=== PATIENT | female | born 1965 | race Caucasian/White ===

== ENCOUNTER 2018-08-16 21:04 | Outpatient (REF) | payer OTHER, SELFPAY ==
[2018-08-16 21:31] LABS: Anion Gap 8.1 mmol/L (3-11); BUN 11 mg/dL (7-18); CO2 26.9 mmol/L (21.0-32.0); CREATININE 0.88 mg/dL (0.55-1.02); Calcium 8.4 mg/dL (8.5-10.1); Chloride 104 mmol/L (98-107); Glucose 104 mg/dL (70-100); Potassium 4.1 mmol/L (3.5-5.1); Sodium 139 mmol/L (136-145)
== END 2018-08-16 21:24 ==
LOC: NCHCN 21:04
PROVIDERS: PCP Nurse Practitioner Family; Visit Provider Nurse Practitioner Family
DX: N28.9 Disorder of kidney and ureter, unspecified (principal); R00.2 Palpitations; R53.83 Other fatigue; R20.2 Paresthesia of skin; K21.9 Gastro-esophageal reflux disease without esophagitis; J45.20 Mild intermittent asthma, uncomplicated; M25.50 Pain in unspecified joint
CPT/HCPCS: 80048

== ENCOUNTER 2018-09-24 09:51 | Day surgery (SDC) | payer OTHER, SELFPAY ==
[2018-09-24 10:07] VITALS: BP 139/85; PULSE 74; RESP 16; TEMP 37.2; O2SAT 98
[2018-09-24] MEDS: Lactated Ringers 1,000 ML 30 ML IV (10:37)
--- NOTE | 2018-09-24 11:52 | STOM_PTH ---
PATIENT: REGINALDO CELESTIN LOC: [facility] U#:[id number] AGE/SX: 52/F ROOM: RE09/24/[address]: Javy Mares DO : 1965 BED: DIS: 09/24/2018 SPEC #: [id number] RECD: 09/24/18 12:59 STATUS: ROSALBA REQ #: [id number] CITLALLI: 09/24/18 11:[address]: Javy Mares DEPT: Surgical Specimen RECD BY: Reginaldo Lee ENTERED: 09/24/18 13:00 SP TYPE: STOMACH OTHR DR: Claribel Jc Tissues: 1 - STOMACH BIOPSY Procedures: GROSS AND MICRO LEVEL 4 IMMUNOPEROXIDASE STAIN Comments: [id number]
[2018-09-24 12:27] VITALS: BP 117/80; PULSE 76; RESP 16; TEMP 37.3; O2SAT 99
--- NOTE | 2018-09-24 13:01 | W.PM.ENDDOP ---
Date of service: 09/24/18 Time of Service: 11:35 Endoscopy Report DATE OF PROCEDURE: 09/24/18 PRE-OP DIAGNOSIS: Gastroesophageal reflux disease POST-OP DIAGNOSIS: same PROCEDURE: Esophagogastroduodenoscopy with biopsy SURGEON: Javy Mares ANESTHESIA: MAC (Zaki Rizo CRNA; ASA 2 Mallampati class II) ESTIMATED BLOOD LOSS: 1 PATHOLOGY: other (Gastric antral biopsy) COMPLICATIONS: None DISPOSITION: same day INDICATIONS: Pleasant 52 y/o female presents with complaints of long standing GERD that has been poorly controlled with the use of Prevacid daily. 3 weeks ago (beginning of ) she started taking Pepcid QHS with no change in her symptoms. She reports that in the Summer 2016 she noted abdominal pain and tenderness to palpation in the LUQ that radiated into her lower abdominal/LLQ. She states this resolved however 2-3 months ago similar symptoms restarted. She noted break through reflux and point tenderness in the LUQ that is intermittent. But since that time she has had constant, low level burning that feels like indigestion. She has also noted that strong smells such as cutting onions or the smell of a skunk will make me have indigestion. She denies having made any changes to her diet and states that she enjoys flavor foods, that have lots of seasonings. FINDINGS: Examining the upper gastrointestinal tract from the oropharynx to the third portion of the duodenum no gross abnormalities were noted. Biopsies were taken for the gastric antrum for microscopic analysis. PROCEDURE DESCRIPTION: The patient was brought to the procedure room. Monitoring for telemetry, end-tidal CO2, O2 saturation, blood pressure were applied. An appropriate timeout was taken reviewing the patient's identification, allergies, medications,and procedure. A bite was placed, and sedation was titrated for effect by the GLUE MOUNTER OPERATOR. An Olympus variable stiffness endoscope was advanced from the oropharynx to the third portion of the duodenum without difficulty. The scope was then withdrawn in circumferential manner from the duodenum back to the oropharynx. In performing withdrawal of the scope, the duodenum appeared grossly normal. The scope was withdrawn into the gastric antrum and retroflexed to examine the entire stomach, and no abnormalities of the gastric antrum, anterior, posterior surfaces of the stomach, lesser curvature, greater curvature, and fundus were noted. I did take biopsies from the gastric antrum which were submitted to pathology for microscopic review the scope was then withdrawn to the GE junction which I measured at 34 cm The Z line was at 34 cm and appeared regular. I withdrew the scope through the remainder of the esophagus all which appear grossly normal. Scope was then withdrawn terminating the upper endoscopy.
--- NOTE | 2018-09-24 13:10 | PDOC.DSDIS_ITS ---
Discharge Plan Disposition Patient Disposition: HOME Condition: Good Discharge Details Reason For Visit: GERD Attending Provider: Javy Mares Primary Care Provider: Claribel Jc Home Meds and New Rx's Prescriptions: Continue famotidine [Pepcid] 20 mg tablet 20 mg PO HS RF: 0 cetirizine [Zyrtec] 10 MG tablet 10 mg PO BID RF: 0 calcium carbonate [Calcium 500] 500 MG tablet 500 mg PO HS RF: 0 ferrous sulfate [Feosol] 325 MG tablet 325 mg PO BID RF: 0 levothyroxine 150 MCG tablet 150 mcg PO DAILY RF: 0 fluticasone [Flovent HFA] 10.6 GM HFA aerosol inhaler 2 puff Inhalation BID PRNQty: 1 RF: 3 albuterol sulfate [ProAir HFA] 8.5 GM HFA aerosol inhaler 2 puff Inhalation PRN RF: 0 drospirenone-ethinyl estradiol [ASHLEY (28)] 1 EACH tablet 1 tab-cap PO DAILY RF: 0 lactobacillus combination no.4 [Probiotic] 1 EACH capsule 1 ea PO DAILY RF: 0 lansoprazole [Prevacid SoluTab] 30 MG tablet,disintegrat, delay rel 30 mg PO DAILY RF: 0 mometasone [Nasonex] 17 GM spray,non-aerosol 2 spray NS HS RF: 0 olopatadine [Pazeo] 2.5 ML drops 2.5 ml Ophthalmic HS RF: 0 Discharge Instructions Instructions: Upper Endoscopy (DC) Stand Alone Forms: DSU Post EGD Instructions, Darius Bradshaw (DSU) Activity:: Activity as Tolerated Diet:: As Tolerated Discharge Orders Discharge Orders: Discharge Order (Routine); Ordered 09/24/18 Ordered By: Javy Mares Discharge Data Discharge Date/Time-TO BE ENTERED AT DEPARTURE: 09/24/18 12:40 Discharge Comment: with DS: Diagnosis Discharge Diagnosis (1) GERD (gastroesophageal reflux disease): Status: Chronic Asessment and Plan: Upper endoscopy performed: Endoscopy Report DATE OF PROCEDURE: 09/24/18 PRE-OP DIAGNOSIS: Gastroesophageal reflux disease POST-OP DIAGNOSIS: same PROCEDURE: Esophagogastroduodenoscopy with biopsy SURGEON: Javy Mares ANESTHESIA: MAC (Zaki Rizo CRNA; ASA 2 Mallampati class II) ESTIMATED BLOOD LOSS: 1 PATHOLOGY: other (Gastric antral biopsy) COMPLICATIONS: None DISPOSITION: same day INDICATIONS: Nabila 52 y/o female presents with complaints of long standing GERD that has been poorly controlled with the use of Prevacid daily. 3 weeks ago (beginning of ) she started taking Pepcid QHS with no change in her symptoms. She reports that in the Summer 2016 she noted abdominal pain and tenderness to palpation in the LUQ that radiated into her lower abdominal/LLQ. She states this resolved however 2-3 months ago similar symptoms restarted. She noted break through reflux and point tenderness in the LUQ that is intermittent. But since that time she has had constant, low level burning that feels like indigestion. She has also noted that strong smells such as cutting onions or the smell of a skunk will make me have indigestion. She denies having made any changes to her diet and states that she enjoys flavor foods, that have lots of seasonings. FINDINGS: Examining the upper gastrointestinal tract from the oropharynx to the third portion of the duodenum no gross abnormalities were noted. Biopsies were taken for the gastric antrum for microscopic analysis. PROCEDURE DESCRIPTION: The patient was brought to the procedure room. Monitoring for telemetry, end- tidal CO2, O2 saturation, blood pressure were applied. An appropriate timeout was taken reviewing the patient's identification, allergies, medications,and procedure. A bite was placed, and sedation was titrated for effect by the NAVAL SCIENCE TEACHER. An Olympus variable stiffness endoscope was advanced from the oropharynx to the third portion of the duodenum without difficulty. The scope was then withdrawn in circumferential manner from the duodenum back to the oropharynx. In performing withdrawal of the scope, the duodenum appeared grossly normal. The scope was withdrawn into the gastric antrum and retroflexed to examine the entire stomach, and no abnormalities of the gastric antrum, anterior, posterior surfaces of the stomach, lesser curvature, greater curvature, and fundus were noted. I did take biopsies from the gastric antrum which were submitted to pathology for microscopic review the scope was then withdrawn to the GE junction which I measured at 34 cm The Z line was at 34 cm and appeared regular. I withdrew the scope through the remainder of the esophagus all which appear grossly normal. Scope was then withdrawn terminating the upper endoscopy.
== END 2018-09-24 12:40 | disposition home or self-care (01) ==
PROVIDERS: PCP Nurse Practitioner Family; Visit Provider Surgery
PROC: 0DJ68ZZ Inspection of Stomach, Via Natural or Artificial Opening Endoscopic (ICD-10-PCS; CPT 43235; principal; 2018-09-24 11:15)
DX: K21.9 Gastro-esophageal reflux disease without esophagitis (principal); K31.89 Other diseases of stomach and duodenum; K25.9 Gastric ulcer, unspecified as acute or chronic, without hemorrhage or perforation; G47.33 Obstructive sleep apnea (adult) (pediatric)
CPT/HCPCS: 43239; 88305; 88361

== ENCOUNTER 2018-10-06 01:36 | Outpatient (CLI) | payer OTHER, SELFPAY ==
--- NOTE | 2018-10-06 07:01 | DI.US_ITS ---
SYMPTOM/DIAGNOSIS: UPPER ABD PAIN, NAUSEA, VOMITING, R10.9 ABDOMEN ULTRASOUND: Routine examination. No priors. The aorta is of normal caliber. The inferior vena cava is unremarkable. The liver is enlarged measuring 19.2 cm. in length. There is diffuse increased echogenicity of the liver consistent with hepatic steatosis. No hepatic mass is seen. The patient is status post cholecystectomy. The common duct measures .9 cm. This likely reflects post cholecystectomy state. The pancreas, spleen and kidneys are all unremarkable. IMPRESSION: 1. Hepatomegaly and hepatic steatosis. 2 . Status post cholecystectomy.
== END 2018-10-06 01:56 ==
PROVIDERS: PCP Nurse Practitioner Family; Visit Provider Surgery
DX: R10.31 Right lower quadrant pain (principal); R11.2 Nausea with vomiting, unspecified; R16.0 Hepatomegaly, not elsewhere classified; K76.0 Fatty (change of) liver, not elsewhere classified; Z90.49 Acquired absence of other specified parts of digestive tract
CPT/HCPCS: 76700

== ENCOUNTER 2019-02-15 14:29 | Outpatient (REF) | payer BC, SELFPAY ==
[2019-02-15 21:24] LABS: BUN 10 mg/dL (7-18); CREATININE 0.84 mg/dL (0.55-1.02); Calcium 8.7 mg/dL (8.5-10.1); Glucose 123 mg/dL (70-100)
[2019-02-15 21:25] LABS: ALT 28 U/L (12-78); AST 26 U/L (15-37); Albumin 3.2 g/dL (3.4-5.0); Alkaline Phosphatase 58 U/L (46-116); Anion Gap 8.7 mmol/L (3-11); Bilirubin, Total 0.1 mg/dL (0.2-1.0); CO2 26.3 mmol/L (21.0-32.0); Chloride 106 mmol/L (98-107); Sodium 141 mmol/L (136-145); Total Protein 6.8 g/dL (6.4-8.2)
[2019-02-17 10:37] LABS: Hepatitis A Antibody IgM Negative (NEGAT); Hepatitis B Core Antibody Negative (NEGAT); Hepatitis B surface Ag Negative (NEGAT); Hepatitis C Ab w Rflx HCV PCR Negative (NEGAT)
== END 2019-02-15 14:49 ==
LOC: NCHCN 14:29
PROVIDERS: PCP Nurse Practitioner Family; Visit Provider Nurse Practitioner Family
DX: R16.0 Hepatomegaly, not elsewhere classified (principal); D64.9 Anemia, unspecified; J45.20 Mild intermittent asthma, uncomplicated
CPT/HCPCS: 80053; 86704; 86709; 86803; 87340

== ENCOUNTER 2019-05-17 14:59 | Outpatient (REF) | payer BC, SELFPAY ==
[2019-05-17 21:51] LABS: Abs Immature Grans 0.02 k/cumm (0.0-0.09); Absolute Basophil Count 0.03 k/cumm (0.0-0.2); Absolute Eosinophil Count 0.13 k/cumm (0.0-0.7); Absolute Lymphocyte Count 1.79 k/cumm (1.2-3.4); Absolute Neutrophil Count 5.63 k/cumm (1.2-6.7); Basophils % 0.4; Eosinophils % 1.6; HCT 40.8 % (36.0-46.0); Immature Grans % 0.2; Lymphocytes % 21.6; Mean Corp. HGB Concentration 31.9 g/dL (32.0-36.0); Mean Corpuscular Hemoglobin 28.6 pg (27.0-33.0); Mean Corpuscular Volume 89.9 fL (80-95); Mean Platelet Volume 10.2 fL (8.0-11.0); Monocytes % 8.4; Neutrophils % 67.8; Platelet Count 282 x1000/uL (130-400); RBC 4.54 m/cumm (4.00-5.20); RBC Distribution Width 13.3 % (11.7-14.6)
[2019-05-17 21:58] LABS: Iron 64 ug/dL (50-175); Total Iron Binding Capacity 419 ug/dL (250-450); Transferrin Sat 15 % (15-50)
[2019-05-17 22:09] LABS: Calculated LDL 108 mg/dL; Cholesterol 163 mg/dL (50-200); HDL Cholesterol 34 mg/dL (40-60); Triglyceride 106 mg/dL (30-150)
[2019-05-17 23:11] LABS: TSH (W/Ref FT4) 0.67 uIU/mL (0.36-3.74); Vitamin B12 334 pg/mL (193-986)
[2019-05-20 12:02] LABS: IgA 201 mg/dL (85-499); Interpretation SEE COMMENTS; Tissue Transglutaminase IgA <1.2 U/mL (<4.0)
== END 2019-05-17 15:19 ==
LOC: NCHCN 14:59
PROVIDERS: PCP Nurse Practitioner Family; Visit Provider Nurse Practitioner Family
DX: R16.0 Hepatomegaly, not elsewhere classified (principal); K21.9 Gastro-esophageal reflux disease without esophagitis; R03.0 Elevated blood-pressure reading, without diagnosis of hypertension; R73.03 Prediabetes; N28.9 Disorder of kidney and ureter, unspecified; R20.2 Paresthesia of skin; M25.50 Pain in unspecified joint; G47.33 Obstructive sleep apnea (adult) (pediatric); D64.9 Anemia, unspecified
CPT/HCPCS: 80061; 82784; 83516; 83721; 82607; 83540; 83550; 83735; 84443; 85025

== ENCOUNTER 2019-07-07 16:23 | Outpatient (REF) | payer BC, SELFPAY ==
[2019-07-07 21:43] LABS: Anion Gap 7.4 mmol/L (3-11); BUN 10 mg/dL (7-18); CO2 30.6 mmol/L (21.0-32.0); CREATININE 0.99 mg/dL (0.55-1.02); Calcium 8.7 mg/dL (8.5-10.1); Chloride 101 mmol/L (98-107); Estimated GFR 59.14 (mL/min/1.73m2); Glucose 89 mg/dL (70-100); Potassium 3.3 mmol/L (3.5-5.1); Sodium 139 mmol/L (136-145)
== END 2019-07-07 16:43 ==
LOC: NCHCN 16:23
PROVIDERS: PCP Nurse Practitioner Family; Visit Provider Nurse Practitioner Family
DX: Z00.00 Encounter for general adult medical examination without abnormal findings (principal); R73.03 Prediabetes; R03.0 Elevated blood-pressure reading, without diagnosis of hypertension
CPT/HCPCS: 80048

== ENCOUNTER 2019-07-21 15:42 | Outpatient (REF) | payer BC, SELFPAY ==
[2019-07-21 21:15] LABS: Potassium 3.3 mmol/L (3.5-5.1)
== END 2019-07-21 16:02 ==
LOC: NCHCN 15:42
PROVIDERS: PCP Nurse Practitioner Family; Visit Provider Family Medicine
DX: Z00.00 Encounter for general adult medical examination without abnormal findings (principal); E87.6 Hypokalemia
CPT/HCPCS: 84132

== ENCOUNTER 2019-08-19 17:24 | Outpatient (REF) | payer BC, SELFPAY ==
[2019-08-19 21:19] LABS: Hemoglobin A1C 6.2 % (4.5-6.2)
== END 2019-08-19 17:44 ==
LOC: NCHCN 17:24
PROVIDERS: PCP Nurse Practitioner Family; Visit Provider Nurse Practitioner Family
DX: E87.6 Hypokalemia (principal); R03.0 Elevated blood-pressure reading, without diagnosis of hypertension; R73.03 Prediabetes; E03.9 Hypothyroidism, unspecified; R53.83 Other fatigue
CPT/HCPCS: 83036; 84132

== ENCOUNTER 2019-09-01 15:00 | Outpatient (REF) | payer BC, SELFPAY ==
[2019-09-01 22:12] LABS: Anion Gap 7.7 mmol/L (3-11); BUN 14 mg/dL (7-18); CO2 28.3 mmol/L (21.0-32.0); CREATININE 0.94 mg/dL (0.55-1.02); Chloride 107 mmol/L (98-107); Glucose 71 mg/dL (70-100); Potassium 4.3 mmol/L (3.5-5.1); Sodium 143 mmol/L (136-145)
== END 2019-09-01 15:20 ==
LOC: NCHCN 15:00
PROVIDERS: PCP Nurse Practitioner Family; Visit Provider Nurse Practitioner Family
DX: R03.0 Elevated blood-pressure reading, without diagnosis of hypertension (principal); E87.6 Hypokalemia
CPT/HCPCS: 80048